=== PATIENT | female | born 1930 | race African-American/Black ===

== ENCOUNTER 2017-07-10 15:12 | Emergency (ER) | payer OTHER ==
[~2017-07-10] VITALS: Ht 167.6 cm; Wt 104.1 kg
[~2017-07-10 15:12] MED LIST: AMLODIPINE BESY10 MG PO; ARICEPT10 MG PO; ASPIR-LOW81 MG PO; ATIVAN0.5 MG PO; CELEXA20 MG PO; CITALOPRAM HBR20 MG PO; DONEPEZIL HCL10 MG PO; FISH OIL 1,0001 EAC4 PO; FISH OIL 1,0001 EAC7 PO; L-CARNITINE500 M1 PO; L-CARNITINE500 MG PO; LEVAQUIN750 MG PO; LISINOPRIL20 MG PO; LOTREL 5/201 CAPSULE PO; NAMENDA10 MG PO; TRAZODONE HCL50 MG PO; ULTRAM50 MG PO
[2017-07-10 16:25] LABS: HEMATOCRIT 38.9 % (36.0-46.0); MCHC 32.1 G/DL (30.0-36.0); MCV 93.3 FL (83-99); MEAN PLAT.VOLUME 9.3 uM^3 (9.5-12.4); PLATELET COUNT 210 K/uL (156-360); RBC DIS.WIDTH-CV 13.7 % (11.8-14.6); RBC DIS.WIDTH-SD 46.7 % (39-53); RED BLOOD COUNT 4.17 M/uL (3.80-5.20); WHITE BLOOD COUNT 4.7 K/uL (4.1-10.2)
[2017-07-10 16:33] LABS: CHLORIDE 106 mEq/L (99-109); POTASSIUM 4.3 mEq/L (3.7-5.4); SODIUM 141 mEq/L (136-147)
[2017-07-10 16:35] LABS: GLUCOSE 133 mg/dL (70-99)
[2017-07-10 16:37] LABS: ANION GAP 10 MEQ/L (2-14)
[2017-07-10 16:39] LABS: GFR ESTIMATE (CALCULATED) 55 mL/min/
[2017-07-10 16:40] LABS: UREA NITROGEN (BUN) 27 mg/dL (9-23)
[2017-07-10 17:16] LABS: ADD MIUA? YES; BILIRUBIN NEGATIVE; BLOOD SMALL; COLOR YELLOW ((YELLOW)); GLUCOSE (STRIP) NEGATIVE; KETONES NEGATIVE; LEUKOCYTES SMALL; NITRITE POSITIVE; PROTEIN (STRIP) NEGATIVE; SPECIFIC GRAVITY 1.009 (1.000-1.030)
[2017-07-10] MEDS ORDERED: CIPRO500 MG PO (18:22)
[2017-07-10 20:18] VITALS: BP 144/109
[2017-07-10 20:30] LABS: BACTERIA 2+ /HPF; EPITHELIAL CELLS RARE /HPF; MUCUS NONE SEEN /LPF; RED BLOOD CELLS NONE SEEN /HPF (0-5); UCUL ADDED? YES; WHITE BLOOD CELLS RARE /HPF (0-5)
[2017-07-10 20:31] LABS: CASTS PRESENT /LPF; CRYSTALS NONE SEEN
[2017-07-10 20:32] LABS: HYALINE CASTS 0-5 /LPF
== END 2017-07-10 20:20 ==
LOC: EME 15:12
PROVIDERS: Emergency Medicine
DX: N39.0 Urinary tract infection, site not specified (principal); B96.29 Other Escherichia coli [E. coli] as the cause of diseases classified elsewhere; Z16.11 Resistance to penicillins; G30.9 Alzheimer's disease, unspecified; F02.80 Dementia in other diseases classified elsewhere, unspecified severity, without behavioral disturbance, psychotic disturbance, mood disturbance, and anxiety; I10 Essential (primary) hypertension; F41.9 Anxiety disorder, unspecified; F32.9 Major depressive disorder, single episode, unspecified; Z87.891 Personal history of nicotine dependence
CPT/HCPCS: 80048; 81003; 83605; 85027; 87077; 87086; 87186; 99281; 99284